=== PATIENT | male | born 1990 | race Caucasian/White ===

== ENCOUNTER 2017-07-27 22:56 | Emergency (ER) | payer OTHER ==
[~2017-07-27] VITALS: Ht 180.3 cm; Wt 91.0 kg
[~2017-07-27 22:56] MED LIST: MMW SS; PRED20 PO
[2017-07-27 23:00] VITALS: BP 114/72; PULSE 122; RESP 18; TEMP 102.5; O2SAT 96
--- NOTE | 2017-07-28 00:23 | PD ---
HPI Chief Complaint: Cold / Flu Symptoms Time Seen by Provider: 00:23 Travel History International Travel<30 days: No Contact w/Intl Traveler<30days: No Traveled to known affect area: No History of Present Illness HPI The patient is a 27 year old male who presents to the [facility] emergency department with a history of body aches and headache that began yesterday. He reports that his headache was similar to his prior migraines. He reports that he had nausea and vomiting associated with this yesterday. He reports that after the vomiting began his headache began to improve. He denies any vomiting today. He reports having some abdominal cramping, however no diarrhea yet. He reports that he's had a sore throat with a cough productive of brown sputum. He denies having any nasal discharge or rhinorrhea. He reports that he has had a fever with a MAXIMUM TEMPERATURE of 102. He reports having body aches and bilateral flank pain. He reports having dysuria without urinary frequency or urgency. He denies having any penile discharge, testicle pain or swelling, or new sexual partners. He does however report a history of UTI at 11 years of age. On review of systems otherwise, the patient denies having any neck pain, chest pain, shortness of breath, or neurologic symptoms. [facility] Past Medical History Narrative Medical The patient's past medical history is significant for UTI at 11 years of age. Diminished Hearing: No Genitourinary: Yes (kidney infections as a child) Tetanus Vaccination: Unknown Influenza Vaccination: No Past Surgical History Surgical History: No Previous Surgery Social History Alcohol Use: Yes Tobacco Use: Yes (one quarter pack per day) Substance Use: No Allergies-Medications (Allergen,Severity, Reaction): Coded Allergies: amoxicillin (Unverified Allergy, Severe, Anaphylaxis, 07/27/17) codeine (Unverified Allergy, Severe, Hives, 07/27/17) penicillin G (Unverified Allergy, Severe, Anaphylaxis, 07/27/17) Reported Meds & Prescriptions Reported Meds & Active Scripts Active Zofran Odt (Ondansetron Odt) 4 Mg Tab 4 Mg SL Q6HR PRN Tamiflu (Oseltamivir Phosphate) 75 Mg Cap 75 Mg PO BID Review of Systems Except as stated in HPI: all other systems reviewed are Neg General / Constitutional: No: Fever Eyes: No: Visual changes HENT: Positive: Headaches, Sore Throat, Congestion, No: Rhinorrhea, Neck Pain Cardiovascular: No: Chest Pain or Discomfort Respiratory: Positive: Cough, No: Shortness of Breath Gastrointestinal: Positive: Nausea, Vomiting, No: Abdominal Pain Genitourinary: No: Dysuria Musculoskeletal: No: Pain Skin: No Rash Neurologic: Positive: Weakness (generalized weakness), Headache, No: Focal Abnormalities, Change in Mentation, Slurred Speech, Sensory Disturbance Psychiatric: No: Depression Endocrine: No: Polydipsia Hematologic/Lymphatic: No: Easy Bruising Physical Exam Narrative General: The patient is a well-developed well-nourished male in no acute distress. Head and Neck exam: Head is normocephalic atraumatic. Eyes: EOMI, pupils are equal round and reactive to light. Nose: Midline septum with pink mucous membranes Mouth: Dentition unremarkable. Moist mucus membranes. Posterior oropharynx is erythematous with tonsillar hypertrophy. No exudates. Uvula midline. Airway patent. Neck: No palpable lymphadenopathy. No nuchal rigidity. No thyromegaly. Negative Brudzinski, negative Kernig sign. Cardiovascular: Sinus tachycardia in the low 100s without murmurs, gallops, or rubs. No pulse deficit to the extremities on simultaneous auscultation and palpation of his radial artery. Lungs: Clear to auscultation bilaterally. No wheezes, rhonchi, or rales. Abdomen: Soft, without tenderness to palpation in all 4 quadrants of the abdomen. No guarding, rebound, or rigidity. Normal bowel sounds are audible. No tenderness on palpation of McBurney's point Extremities: No clubbing, cyanosis, or edema. 2+ pulses in all 4 extremities. No calf tenderness on palpation. Back: No spinous process tenderness to palpation. No costovertebral angle tenderness to palpation. Neurologic Exam: Grossly nonfocal. Skin Exam: No rash noted. Intact skin that is warm and dry. Data Data Last Documented VS Vital Signs Date Time Temp Pulse Resp B/P (MAP) Pulse Ox O2 Delivery O2 Flow Rate FiO2 07/28/17 01:46 17 98 Room Air 07/28/17 01:46 88 07/27/17 23:00 102.5 Orders Orders Complete Blood Count With Diff (07/28/17 01:08) Comprehensive Metabolic Panel (07/28/17 01:08) Blood Culture (07/28/17 01:08) Lipase (07/28/17 01:08) Urinalysis - C+S If Indicated (07/28/17 01:08) Group A Rapid Strep Screen (07/28/17 01:08) Influenzae A/B Antigen (07/28/17 01:08) Iv Access Insert/Monitor (07/28/17 01:08) Ecg Monitoring (07/28/17 01:08) Oximetry (07/28/17 01:08) Salicylates (Aspirin) (07/28/17 01:08) Tylenol (Acetaminophen) (07/28/17 01:08) Sodium Chlor 0.9% 1000 Ml Inj (Ns 1000 M (07/28/17 01:15) Ondansetron Inj (Zofran Inj) (07/28/17 01:15) Ibuprofen (Motrin) (07/28/17 01:15) Strep Culture (Group A) (07/28/17 01:25) Chest, Single Ap (07/28/17 02:29) Sodium Chlor 0.9% 1000 Ml Inj (Ns 1000 M (07/28/17 02:30) Oseltamivir (Tamiflu) (07/28/17 02:30) Potassium Chloride (Kcl) (07/28/17 02:30) Labs Laboratory Tests Test 07/28/17 01:15 07/28/17 01:35 White Blood Count 6.2 TH/MM3 Red Blood Count 4.41 MIL/MM3 Hemoglobin 13.2 GM/DL Hematocrit 37.7 % Mean Corpuscular Volume 85.4 FL Mean Corpuscular Hemoglobin 30.0 PG Mean Corpuscular Hemoglobin Concent 35.1 % Red Cell Distribution Width 13.0 % Platelet Count 89 TH/MM3 Mean Platelet Volume 10.0 FL Neutrophils (%) (Auto) 72.6 % Lymphocytes (%) (Auto) 13.8 % Monocytes (%) (Auto) 13.1 % Eosinophils (%) (Auto) 0.1 % Basophils (%) (Auto) 0.4 % Neutrophils # (Auto) 4.5 TH/MM3 Lymphocytes # (Auto) 0.9 TH/MM3 Monocytes # (Auto) 0.8 TH/MM3 Eosinophils # (Auto) 0.0 TH/MM3 Basophils # (Auto) 0.0 TH/MM3 CBC Comment AUTO DIFF Differential Total Cells Counted 100 Neutrophils % (Manual) 56 % Band Neutrophils % 10 % Lymphocytes % 13 % Monocytes % 18 % Neutrophils # (Manual) 4.2 TH/MM3 Metamyelocytes 2 % Differential Comment FINAL DIFF MANUAL Atypical Lymphocytes % Plasma Cells 1 % Platelet Estimate LOW Platelet Morphology Comment NORMAL Red Cell Morphology Comment NORMAL Blood Urea Nitrogen 11 MG/DL Creatinine 1.06 MG/DL Random Glucose 93 MG/DL Total Protein 7.2 GM/DL Albumin 4.1 GM/DL Calcium Level 8.1 MG/DL Alkaline Phosphatase 36 U/L Aspartate Amino Transf (AST/SGOT) 27 U/L Alanine Aminotransferase (ALT/SGPT) 19 U/L Total Bilirubin 0.5 MG/DL Sodium Level 138 MEQ/L Potassium Level 3.0 MEQ/L Chloride Level 104 MEQ/L Carbon Dioxide Level 25.6 MEQ/L Anion Gap 8 MEQ/L Estimat Glomerular Filtration Rate 83 ML/MIN Lipase 88 U/L Salicylates Level 4.0 MG/DL Acetaminophen Level LESS THAN 2.0 MCG/ML Urine Color YELLOW Urine Turbidity CLEAR Urine pH 6.0 Urine Specific [place] 1.023 Urine Protein 30 mg/dL Urine Glucose (UA) NEG mg/dL Urine Ketones 40 mg/dL Urine Occult Blood NEG Urine Nitrite NEG Urine Bilirubin NEG Urine Urobilinogen 2.0 MG/DL Urine Leukocyte Esterase NEG Urine RBC 1 /hpf Urine WBC 2 /hpf Urine Squamous Epithelial Cells 1 /hpf Urine Mucus FEW /lpf Microscopic Urinalysis Comment CULT NOT INDICATED MDM Medical Decision Making Medical Screen Exam Complete: Yes Emergency Medical Condition: Yes Medical Record Reviewed: Yes Differential Diagnosis Influenza, versus strep pharyngitis, versus pneumonia, versus sinusitis Narrative Course During the course of the patients emergency department visit, the patients history, examination, and differential diagnosis were reviewed with the patient. The patient was placed on a groundwater monitoring technician with oximetry and frequent blood pressure monitoring. The patient had IV access obtained and blood work sent for analysis. The patient was initially provided normal saline 1 L IV fluid bolus, Motrin for fever, Zofran for nausea. The patients laboratory studies were reviewed and remarkable for a rapid strep test that is negative, influenza A is positive. White count is 6.2, hemoglobin 13.2, platelets 89 with 72.6 neutrophils, 13.1 monocytes, CMP is remarkable for potassium of 3.0, the patient's potassium was supplemented with oral potassium, GFR 83, calcium 8.1, alkaline phosphatase 36, lipase 88, urinalysis shows 30 protein, 40 ketones otherwise unremarkable. Salicylate 4, acetaminophen less than 2. A second liter of normal saline was provided. The patient was given a potassium supplement orally. The patient was given Tamiflu 75 mg by mouth 1. The patient will be discharged home with a prescription for Tamiflu and Zofran. The patient is resting comfortably and feels better, is alert and in no distress. The patients results and examination findings were discussed with the patient. The repeat examination is unremarkable and benign. The history, exam, diagnostic testing, and current condition do not suggest any significant pathology to warrant further testing, continued ED treatment, admission, or surgical evaluation at this point. The vital signs have been stable. The patient does not have uncontrollable pain, intractable vomiting, or other significant symptoms. The patient's condition is stable and appropriate for discharge. The patient will pursue further outpatient evaluation with a primary care physician or other designated or consulting physician as indicated in the discharge instructions. The patient expressed understanding and was agreeable with this plan. Diagnosis Primary Impression: Influenza A Additional Impression: Thrombocytopenia Referrals: Primary Care Physician Patient Instructions: General Instructions, Influenza (ED), Thrombocytopenia ( ED) Additional Instructions: The patient was provided a copy of his complete blood count with the evidence of low platelet count. The patient is instructed to have his platelet count repeated in one week and follow-up with primary care physician for reassessment. Med/Other Pt SpecificInfo: Prescription(s) given Scripts Ondansetron Odt (Zofran Odt) 4 Mg Tab 4 MG SL Q6HR Y for Nausea/Vomiting, #7 TAB 0 Refills Prov: Amaris Christie MD 07/28/17 Oseltamivir (Tamiflu) 75 Mg Cap 75 MG PO BID for Mgmt Viral Infection, #9 CAP 0 Refills Prov: Amaris Christie MD 07/28/17 Disposition: 01 DISCHARGE HOME Condition: Stable Amaris Christie MD Jul 28, 2017 00:23
[2017-07-28] MEDS ORDERED: ONDANSETRON HCL 4 MG/2 ML VIAL IV ONE (01:15)
[2017-07-28] MEDS ORDERED: SODIUM CHLOR 0.9% 1000 ML INJ 1,000 ML IV ONE ×2 (01:15→02:30)
[2017-07-28] MEDS ORDERED: IBUPROFEN 400 MG TAB PO ONE (01:15)
[2017-07-28 01:39] LABS: AUTOMATED NEUTROPHIL # 4.5 TH/MM3 (1.8-7.7); BASOPHIL % 0.4 % (0.0-2.0); EOSINOPHIL % 0.1 % (0.0-4.0); HEMATOCRIT 37.7 % (39.0-51.0); HEMOGLOBIN 13.2 GM/DL (13.0-17.0); LYMPH % 13.8 % (9.0-44.0); LYMPHOCYTE # 0.9 TH/MM3 (1.0-4.8); MEAN CELL VOLUME 85.4 FL (80.0-100.0); MEAN CORPUSCULAR HGB CONC 35.1 % (32.0-36.0); MONO % 13.1 % (0.0-8.0); MONOCYTE # 0.8 TH/MM3 (0-0.9); NEUT % 72.6 % (16.0-70.0); PLATELET COUNT 89 TH/MM3 (150-450); RED BLOOD COUNT 4.41 MIL/MM3 (4.50-5.90); WHITE BLOOD COUNT 6.2 TH/MM3 (4.0-11.0)
[2017-07-28 01:46] VITALS: BP 117/69; PULSE 88; RESP 17; O2SAT 98
[2017-07-28 01:51] LABS: BILIRUBIN, URINE NEG (NEG); BLOOD, URINE NEG (NEG); GLUCOSE,URINE NEG (NEG); KETONE, URINE 40 mg/dL (NEG); MUCUS URINE FEW /lpf (OCC); NITRITE,URINE NEG (NEG); SQUAMOUS EPITHELIAL CELL URINE 1 /hpf (0-5); URINE COLOR YELLOW (YELLW/STRAW); URINE LEUKOCYTE ESTERASE NEG (NEG)
[2017-07-28 02:15] LABS: ALBUMIN 4.1 GM/DL (3.4-5.0); ALT (GPT) 19 U/L (12-78); AST (GOT) 27 U/L (15-37); BICARBONATE 25.6 MEQ/L (21.0-32.0); BLOOD UREA NITROGEN 11 MG/DL (7-18); CALCIUM 8.1 MG/DL (8.5-10.1); CHLORIDE 104 MEQ/L (98-107); CREATININE 1.06 MG/DL (0.60-1.30); GLOMERULAR FILTRATION RATE 83 ML/MIN (>89); GLUCOSE,RANDOM 93 MG/DL (74-106); LIPASE 88 U/L (73-393); SODIUM (NA) 138 MEQ/L (136-145)
[2017-07-28 02:17] LABS: ACETAMINOPHEN LESS THAN 2.0 MCG/ML (10.0-30.0); ALKALINE PHOSPHATASE 36 U/L (45-117); TOTAL BILIRUBIN ADULT 0.5 MG/DL (0.2-1.0); TOTAL PROTEIN 7.2 GM/DL (6.4-8.2)
[2017-07-28] MEDS ORDERED: OSELTAMIVIR PHOSPHATE 75 MG CAP PO ONE (02:30)
[2017-07-28] MEDS ORDERED: POTASSIUM CHLORIDE 20 MEQ CONTROLLED RELEASE TAB PO ONE (02:30)
[2017-07-28] MEDS ORDERED: OSEL75 PO (02:31)
[2017-07-28] MEDS ORDERED: ZOFR4TAB3 SL (02:31)
[2017-07-28 02:41] LABS: BANDS 10 % (0-6); METAMYELOCYTES 2 % (0-1); MONOCYTES 18 % (0-8); NEUTROPHIL # MANUAL DIFF 4.2 TH/MM3 (1.8-7.7); PLASMA CELLS 1 % (0-0); POLYS (SEG NEUTROPHILS) 56 % (16-70)
[2017-07-28 02:42] LABS: LYMPHOCYTES 13 % (9-44)
--- NOTE | 2017-07-28 03:07 | RADRPT ---
EXAM DATE/TIME: 07/28/2017 02:56 [place] COMPARISON: No previous studies available for comparison. INDICATIONS : Cough and flu like symptoms. MEDICAL HISTORY : None. SURGICAL HISTORY : None. ENCOUNTER: Initial ACUITY: 1 day PAIN SCORE: 0/10 LOCATION: Bilateral chest FINDINGS: A single view of the chest demonstrates the lungs to be symmetrically aerated without evidence of mas s, infiltrate or effusion. The cardiomediastinal contours are unremarkable. Osseous structures are intact. CONCLUSION: No acute disease. Ascencion Wei MD on July 28, 2017 at 3:05 Board Certified Radiologist. This report was verified electronically.
== END 2017-07-28 04:12 | disposition home or self-care (01) ==
LOC: NEPC 22:56
DX: J09.X2 Influenza due to identified novel influenza A virus with other respiratory manifestations (principal); D69.6 Thrombocytopenia, unspecified; R51 Headache; M79.1 Myalgia; R11.2 Nausea with vomiting, unspecified; R10.9 Unspecified abdominal pain; R50.9 Fever, unspecified; R30.0 Dysuria; E87.6 Hypokalemia; F17.200 Nicotine dependence, unspecified, uncomplicated; Z87.440 Personal history of urinary (tract) infections
CPT/HCPCS: 71045; 80053; 80307; 81001; 83690; 85007; 85027; 87040; 87081; 87804; 87880; 96361; 96374; 99284; J2405; J7030